=== PATIENT | female | born 1970 | race Caucasian/White ===

== ENCOUNTER 2018-06-24 11:47 | Outpatient (CLI) | payer BC, SELFPAY ==
[2018-06-24 11:55] VITALS: BP 122/72; PULSE 70; RESP 18; O2SAT 99
[2018-06-24 12:24] VITALS: BP 121/68; PULSE 77; RESP 19; O2SAT 98
--- NOTE | 2018-06-24 12:28 | DI.RAD_ITS ---
SYMPTOMS/DIAGNOSIS: LUMBAR RADICULOPATHY, INTERLAMINAR EPIDURAL STEROID INJECTION C-ARM FLUOROSCOPY: Fluoroscopy Time: 22.3 sec, 3.47 mGy. C-arm fluoroscopy was utilized by Dr. Drake during reported epidural steroid injection. Hardcopy shows needle placement and injection in epidural space in the mid thoracic spine probably at the T 7 level.
[2018-06-24] MEDS: methylPREDNISolone ACETATE 40 MG/ML VIAL IJ (12:35)
[2018-06-24] MEDS: Omnipaque 240 MG/ML 50 ML BTL IJ (12:35)
--- NOTE | 2018-06-24 12:38 | PDOC.PAIN_ITS ---
Pain Clinic Procedure Note Current Active Problems Problem Status Onset Thoracic radiculopathy due to degenerative joint disease of spine Chronic EPIDURAL STEROID WITH CATHETER INJECTION PROCEDURE NOTE COMMENTS: Patient has thoracic back pain radiating to the left chest. She has disc bulges at T7/8. SHAHRAM DIAZ has been referred [facility] the [facility] for lumbar epidural steroid injection. Patient was greeted by the nurse who verified patients name and . Patient was then taken to the fluoroscopy suite. Patient was interviewed and the medical record reviewed. There were no medical , pharmacologic, radiographic, or other structural contraindications to attempting fluoroscopically guided lumbar epidural steroid injection. Risks and expected side effects as well as potential benefits of the procedure were reviewed and voiced concerns addressed. The patient consent form was signed and witnessed. Standard time-out procedure was performed. Patient was placed in the prone position on the fluoroscopy table and automated blood pressure cuff and pulse oximeter applied. The skin entry point for entering/approaching the epidural space by a {T7-8} and marked. Following thorough chlorhexadine preparation of the skin and draping and 1% lidocaine infiltration of the skin entry point and subcutaneous tissues, a 17 gauge Touhy needle was placed under fluoroscopic guidance and with loss of resistance technique into the epidural space. Needle tip placement and depth were aided and confirmed by fluoroscopy. There was no paresthesia or return of blood or CSF through the needle. An Arrow cath was thread to the {left} and 1 cc's of Omnipaque 240 was injected with clear epidural spread confirmed with fluoroscopy. 80mg depomedrol was injected. There was not any unusual discomfort expressed. Vital signs were stable throughout the procedure and were as recorded in nursing records. Follow up plans and appointments were discussed.Post procedure instruction was given as documented in nursing records and having met discharge criteria and was discharged from the [facility]. COMMENTS: Will follow-up as needed consider repeating or thoracic medial branch blocks and radiofrequency ablation
== END 2018-06-24 12:07 ==
PROVIDERS: PCP Family Medicine; Visit Provider Anesthesiology Pain Medicine
DX: M47.24 Other spondylosis with radiculopathy, thoracic region (principal); G89.29 Other chronic pain
CPT/HCPCS: 62321; 72100; J1030; Q9967